=== PATIENT | male | born 1970 | race Caucasian/White ===

== ENCOUNTER 2017-05-28 10:09 | Emergency (ER) | payer BC, OTHER ==
[~2017-05-28] VITALS: Ht 182.9 cm; Wt 90.0 kg
[2017-05-28 10:10] VITALS: BP 122/63; PULSE 84; RESP 17; TEMP 98.7; O2SAT 95
--- NOTE | 2017-05-28 11:21 | PD ---
HPI Chief Complaint: Respiratory Symptoms Time Seen by Provider: 10:58 Travel History International Travel<30 days: Yes Contact w/Intl Traveler<30days: Yes Name of Country Traveled to: [place] Traveled to known affect area: No History of Present Illness HPI This is a 46-year-old male who presents today with complaints of cold cough and subjective fevers 3 days. The patient states that his symptoms started 3 days ago. He reports being very healthy. He states that yesterday the cough was severe enough to make him come today to be evaluated. The patient does give history that he was around water treatment plans a week ago and in the back of his mind, he was wondering if he possibly could have legionnaires disease. There is no right or chills. There is no nausea vomiting. There is postnasal drip. There are no other ill contacts at this point. The patient is down here vacationing from [facility]. PFSH Past Medical History Influenza Vaccination: No ?: Not Social History Alcohol Use: Yes (on occasion) Tobacco Use: No Substance Use: No Allergies-Medications (Allergen,Severity, Reaction): Coded Allergies: No Known Allergies (Unverified , 05/28/17) Reported Meds & Prescriptions Reported Meds & Active Scripts Active Guaifenesin DM Liq (Guaifenesin-Dextromethorphan Liq) 10-100 Mg/5 Ml Liq 10 Ml PO Q4H PRN Levofloxacin 500 Mg Tablet 500 Mg PO DAILY Review of Systems Except as stated in HPI: all other systems reviewed are Neg General / Constitutional: Positive: Fever, No: Chills HENT: No: Headaches, Neck Pain Cardiovascular: No: Chest Pain or Discomfort, Palpitations Respiratory: Positive: Cough, No: Shortness of Breath, Wheezing Gastrointestinal: No: Nausea, Vomiting, Abdominal Pain Genitourinary: No: Urgency, Dysuria Musculoskeletal: No: Weakness, Pain Neurologic: No: Weakness, Dizziness, Headache Physical Exam Narrative GENERAL: Well-developed well-nourished gentleman in no acute respiratory distress. Patient does have a wet sounding cough. SKIN: Focused skin assessment warm/dry. HEAD: Atraumatic. Normocephalic. EYES: No scleral icterus. No injection or drainage. ENT: No nasal bleeding or discharge. Mucous membranes pink and moist. NECK: Trachea midline. Supple. CARDIOVASCULAR: Regular rate and rhythm. No murmur appreciated. RESPIRATORY: No accessory muscle use. Clear to auscultation. Breath sounds equal bilaterally. Slight diminished breath sounds bilaterally at the bases. GASTROINTESTINAL: Abdomen soft, non-tender, nondistended. MUSCULOSKELETAL: No clubbing. No cyanosis. No edema. NEUROLOGICAL: Awake and alert. No obvious cranial nerve deficits. Motor grossly within normal limits. Normal speech. Data Data Last Documented VS Vital Signs Date Time Temp Pulse Resp B/P Pulse Ox O2 Delivery O2 Flow Rate FiO2 05/28/17 11:02 95 18 96 Room Air 05/28/17 10:10 98.7 122/63 Orders Complete Blood Count With Diff (05/28/17 11:08) Basic Metabolic Panel (Bmp) (05/28/17 11:08) Chest, Pa & Lat (05/28/17 11:08) Iv Access Insert/Monitor (05/28/17 11:08) Oximetry (05/28/17 11:08) Legionella Urinary Antigen (05/28/17 11:11) Albuterol-Ipratropium Neb (Duoneb Neb) (05/28/17 11:30) Labs Laboratory Tests Test 05/28/17 11:13 White Blood Count 12.5 TH/MM3 Red Blood Count 4.87 MIL/MM3 Hemoglobin 14.9 GM/DL Hematocrit 43.2 % Mean Corpuscular Volume 88.8 FL Mean Corpuscular Hemoglobin 30.5 PG Mean Corpuscular Hemoglobin 34.4 % Concent Red Cell Distribution Width 13.3 % Platelet Count 147 TH/MM3 Mean Platelet Volume 9.6 FL Neutrophils (%) (Auto) 80.3 % Lymphocytes (%) (Auto) 8.3 % Monocytes (%) (Auto) 7.7 % Eosinophils (%) (Auto) 3.1 % Basophils (%) (Auto) 0.6 % Neutrophils # (Auto) 10.1 TH/MM3 Lymphocytes # (Auto) 1.0 TH/MM3 Monocytes # (Auto) 1.0 TH/MM3 Eosinophils # (Auto) 0.4 TH/MM3 Basophils # (Auto) 0.1 TH/MM3 CBC Comment DIFF FINAL Differential Comment Sodium Level 139 MEQ/L Potassium Level 4.6 MEQ/L Chloride Level 105 MEQ/L Carbon Dioxide Level 28.3 MEQ/L Anion Gap 6 MEQ/L Blood Urea Nitrogen 16 MG/DL Creatinine 1.05 MG/DL Estimat Glomerular Filtration 76 ML/MIN Rate Random Glucose 81 MG/DL Calcium Level 8.9 MG/DL MDM Medical Decision Making Medical Screen Exam Complete: Yes Emergency Medical Condition: Yes Differential Diagnosis Rhonchi at his versus pneumonia versus legionnaires disease Narrative Course Social male presents today with complaints of cough congestion 3 days. The patient reports subjective fever. The patient's white blood count was 12.6. Chest x-ray showed no acute infiltrate. He's concerned that he may have been exposed to Legionella as he works around water treatment plans. He is nontoxic- appearing on my examination. I'll treat him with Levaquin 500 mg 10 days. Also be given a prescription for cough syrup. He is also instructed to use over -the-counter Claritin for decongestant. We did send off a urine antigen test for Legionella. I told him if it was positive, we will call him with those results. Diagnosis Primary Impression: Bronchitis Additional Instructions: [id number] Claritin for decongestant Med/Other Pt SpecificInfo: Prescription(s) given Scripts Guaifenesin-Dextromethorphan Liq (Guaifenesin DM Liq)10-100 Mg/5 Ml Liq10 Ml PO Q4H PRN (COUGH) #1 BOTTLE Ref 0 Prov:Noah Brewer MD 05/28/17 Levofloxacin 500 Mg [id number] Mg PO DAILY #10 TAB Ref 0 Prov:Noah Brewer MD 05/28/17 Disposition: LEFT WITHOUT BEING SEEN Noah Brewer MD May 28, 2017 11:21
[2017-05-28 11:23] LABS: AUTOMATED NEUTROPHIL # 10.1 TH/MM3 (1.8-7.7); BASOPHIL # 0.1 TH/MM3 (0-0.2); BASOPHIL % 0.6 % (0.0-2.0); EOSINOPHIL # 0.4 TH/MM3 (0-0.4); EOSINOPHIL % 3.1 % (0.0-4.0); HEMATOCRIT 43.2 % (39.0-51.0); HEMO FLAGS DIFF FINAL; LYMPH % 8.3 % (9.0-44.0); MEAN CELL VOLUME 88.8 FL (80.0-100.0); MEAN CORPUSCULAR HEMOGLOBIN 30.5 PG (27.0-34.0); MEAN CORPUSCULAR HGB CONC 34.4 % (32.0-36.0); MONO % 7.7 % (0.0-8.0); NEUT % 80.3 % (16.0-70.0); PLATELET COUNT 147 TH/MM3 (150-450); RED BLOOD COUNT 4.87 MIL/MM3 (4.50-5.90); RED CELL DISTRIBUTION WIDTH 13.3 % (11.6-17.2); WHITE BLOOD COUNT 12.5 TH/MM3 (4.0-11.0)
[2017-05-28 11:34] LABS: BICARBONATE 28.3 MEQ/L (21.0-32.0); POTASSIUM 4.6 MEQ/L (3.5-5.1)
[2017-05-28] MEDS: RESP: ALBUTEROL 2.5 MG/IPRATROPIUM 0.5 MG NEB (SCH) INH (11:35)
--- NOTE | 2017-05-28 11:53 | RADRPT ---
EXAM DATE/TIME: 05/28/2017 11:46 [facility] COMPARISON: No previous studies available for comparison. INDICATIONS : Tightness in chest . MEDICAL HISTORY : None. SURGICAL HISTORY : None. ENCOUNTER: Initial ACUITY: 1 day PAIN SCORE: 0/10 LOCATION: Bilateral chest FINDINGS: PA and lateral views of the chest demonstrate the lungs to be symmetrically aerated without evidence of mass, infiltrate or effusion. The cardiomediastinal contours are unremarkable. Osseous structure s are intact. CONCLUSION: Normal examination. Tyrone Arboleda MD on May 28, 2017 at 11:51 Board Certified Radiologist. This report was verified electronically.
[2017-05-28] MEDS ORDERED: LEVO500T8 PO (12:52)
[2017-05-28] MEDS ORDERED: GUAISYP7 PO (12:52)
== END 2017-05-28 13:15 | disposition home or self-care (01) ==
LOC: NEPC 10:09
DX: J40 Bronchitis, not specified as acute or chronic (principal)
CPT/HCPCS: 71020; 80048; 85025; 87449; 94664; 99284